=== PATIENT | female | born 1940 | race Caucasian/White ===

== ENCOUNTER 2017-11-12 06:30 | Inpatient (IN) | payer OTHER ==
[2017-11-12] MEDS ORDERED: SODIUM CHLORIDE 1,000 ML IV STA (06:46)
[2017-11-12 06:48] VITALS: BMI 34.3
--- NOTE | 2017-11-12 06:48 | PDOC ---
Attending Attestation - HPI HPI: 11/12/17 07:04 The patient is a 77 year old female with a significant past medical history of HTN, [place], Dieulafoy lesion s/p EGD and banding discharged yesterday, who presents to the ED for evaluation of melena. The patient reports waking up with generalized weakness and associated nausea. Pt reports 1 episode of a large black bowel movement. She reports hematemesis described as dark red and black in color. As per EMS, the patient fell unconscious. The patient denies chest pain, shortness of breath, headache and dizziness. Denies fever, chills, and constipation. Denies dysuria, frequency, urgency and hematuria. Allergies: NKDA Social History: Former smoker. No reported alcohol or drug use. GI: Dr. Davis <Regine Ye - Last Filed: 11/12/17 07:04> - Resident Resident Name: Zion Ontiveros - ED Attending Attestation I have performed the following: The case was reviewed & discussed with the resident - Physicial Exam PE: 11/12/17 19:52 Physical Exam General Appearance: Yes: Appropriately Dressed. mild distress No: Intoxicated HEENT: positive: EOMI, ALMITA, Normal ENT Inspection, Normal Voice, TMs Normal, Pharynx Normal. negative: Pale Conjunctivae, Photophobia, Scleral Icterus (R), Scleral Icterus (L) Neck: positive: Trachea midline, Normal Thyroid, Supple. negative: Tender, Rigid, Carotid bruit, Stridor, Lymphadenopathy (R), Lymphadenopathy (L), Thyromegaly Respiratory/Chest: positive: Lungs Clear, Normal Breath Sounds. negative: Chest Tender, Respiratory Distress, Accessory Muscle Use, Labored Respiration, RES, Crackles, Rales, Rhonchi, Stridor, Wheezing, Dullness Cardiovascular: positive: Regular Rhythm, Regular Rate, S1, S2. negative: Edema , JVD, Murmur, Bradycardia, Tachycardia Vascular Pulses: Dorsalis-Pedis (R): 2+, Doralis-Pedis (L): 2+ Gastrointestinal/Abdominal: positive: Normal Bowel Sounds, Flat, Soft. diffuse tenderness negative: Organomegaly, Pulsatile Mass, Increased Bowel Sounds, Decreased BS, Distended, Guarding, Rebound, Hernia, Hepatomegaly, Spleenomegaly Lymphatic: negative: Adenopathy, Tenderness Musculoskeletal: positive: Normal Inspection. negative: CVA Tenderness, Decreased Range of Motion Extremity: positive: Normal Capillary Refill, Normal Inspection, Normal Range of Motion, Pelvis Stable. negative: Tender, Pedal Edema, Swelling, Erythema Integumentary: positive: Normal Color, Dry, Warm. 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 negative: EOM Palsy, Facial Droop, Sensory Deficit - Medical Decision Making 11/12/17 19:53 Pt admitted for further evaluation and care <Eduard Rodriguez - Last Filed: 11/12/17 19:54> Attestations - Attestations Documentation prepared by Regine Ye, acting as medical communication specialist for Eduard Rodriguez DO. <Regine Ye - Last Filed: 11/12/17 07:04>
--- NOTE | 2017-11-12 06:53 | PDOC ---
History of Present Illness - General Chief Complaint: Rectal Bleed Stated Complaint: VOMITING BLOOD Time Seen by Provider: 11/12/17 06:32 History Source: Patient Exam Limitations: No Limitations - History of Present Illness Initial Comments: 11/12/17 06:48 Patient is a 77F with history of Dieulafoy lesion s/p EGD and banding discharged yesterday here today complaining of melena. Patient states that she woke up this morning while feeling extremely weak and nauseated. Patient states that she then hard a large black bowel movement and vomited a small amount of dark red/black blood. Patient endorses associated shortness of breath. Patient states that she collapsed to the ground from the weakness. EMS reports her stating that she fell unconscious. Patient was admission course for GI bleed was complicated by ICU stay, but hgb levels were stable and the patient was not this weak. Past History - Past Medical History Allergies/Adverse Reactions: Allergies Allergy/AdvReac Type Severity Reaction Status Date / Time No Known Allergies Allergy Verified 11/12/17 06:46 Home Medications: Ambulatory Orders Losartan Potassium 50 mg PO DAILY 11/06/17 Metoprolol Succinate 50 mg PO DAILY 11/06/17 Spironolactone 25 mg PO DAILY 11/06/17 Atorvastatin Ca [Lipitor] 40 mg PO HS #15 tablet 11/10/17 Pantoprazole Sodium [Protonix] 40 mg PO BID #60 tablet. 11/11/17 COPD: No HTN: Yes - Suicide/Smoking/Psychosocial Hx Smoking History: Former smoker Have you smoked in the past 12 months: No Hx Alcohol Use: No Drug/Substance Use Hx: No Substance Use Type: None Review of Systems - Review of Systems Comments:: 11/12/17 06:53 GENERAL/CONSTITUTIONAL: No fever + chills. +weakness. HEAD, EYES, EARS, NOSE AND THROAT: No change in vision. No sore throat. CARDIOVASCULAR: No chest pain. +shortness of breath RESPIRATORY: No cough, wheezing. +hemoptysis. GASTROINTESTINAL: +nausea, vomiting, diarrhea GENITOURINARY: No dysuria, frequency, or change in urination. MUSCULOSKELETAL: No joint or muscle swelling or pain. No neck or back pain. SKIN: No rash NEUROLOGIC: No headache, vertigo, loss of consciousness, or change in strength/ sensation. ENDOCRINE: No increased thirst. No abnormal weight change HEMATOLOGIC/LYMPHATIC: +anemia, +easy bleeding, ALLERGIC/IMMUNOLOGIC: No hives or skin allergy. *Physical Exam - Vital Signs Last Vital Signs Temp Pulse Resp BP Pulse Ox 99.5 F 79 16 87/54 92 L 11/12/17 06:46 11/12/17 06:46 11/12/17 06:46 11/12/17 06:46 11/12/17 06:46 - Physical Exam Comments: 11/12/17 06:54 GENERAL: Awake, alert, and fully oriented, in acute distress, pale, diaphoretic HEAD: No signs of trauma, normocephalic, atraumatic EYES: PERRLA, EOMI, sclera anicteric, conjunctiva clear ENT: Auricles normal inspection, hearing grossly normal, nares patent, oropharynx clear without exudates. Moist mucosa NECK: Normal ROM, supple, no lymphadenopathy, JVD, or masses LUNGS: No distress, speaks full sentences, clear to auscultation bilaterally HEART: Regular rate and rhythm, normal S1 and S2, no murmurs, rubs or gallops, peripheral pulses normal and equal bilaterally. ABDOMEN: Soft, nontender, normoactive bowel sounds. No guarding, no rebound. No masses EXTREMITIES: Normal inspection, Normal range of motion, no edema. No clubbing or cyanosis. NEUROLOGICAL: Cranial nerves II through XII grossly intact. Normal speech, no focal sensorimotor deficits SKIN: Warm, Dry, normal turgor, no rashes or lesions noted. ED Treatment Course - RADIOLOGY Radiology Studies Ordered: Category Date Time Status CXRPORT [CHEST X-RAY PORTABLE*] [RAD] Stat Radiology 11/12/17 06:36 Ordered Medical Decision Making - Critical Care Time Total Critical Care Time (minutes): 45 Critical Care Statement: The care of this patient involved high complexity decision making to prevent further life threatening deterioration of the patient 's condition and/or to evaluate & treat vital organ system(s) failure or risk of failure. - Medical Decision Making 11/12/17 06:56 Patient is a 77F with history of Dieulafoy lesion s/p EGD and banding, [place] s/p stenting 10 years ago here with GI bleed. Vital signs notable for hypotension to 87/54. EMS placed 16g IV, will place additional line. CBC, CMP, PT/INR, PTT, Lactic acid, stool for occult blood ordered for further evaluation. 1L fluids ordered, blood bank notified of need for emergent transfusion, patient had melanotic bowel movement twice during initial evaluation. 11/12/17 07:15 Second line placed. Blood at patient bedside to be given. Patient mentating well and protecting airway. Signed out to Dr Wilson. *DC/Admit/Observation/Transfer Diagnosis at time of Disposition: GI bleed - Discharge Dispostion Condition at time of disposition: Critical - Referrals - Patient Instructions - Post Discharge Activity
--- NOTE | 2017-11-12 07:17 | PDOC ---
*Physical Exam - Vital Signs Last Vital Signs Temp Pulse Resp BP Pulse Ox 99.5 F 79 16 87/54 92 L 11/12/17 06:46 11/12/17 06:46 11/12/17 06:46 11/12/17 06:46 11/12/17 06:46 ED Treatment Course - LABORATORY CBC & Chemistry Diagram: 11/12/17 07:05 *DC/Admit/Observation/Transfer Diagnosis at time of Disposition: GI bleed - Discharge Dispostion Condition at time of disposition: Critical - Referrals - Patient Instructions - Post Discharge Activity
[2017-11-12 07:28] LABS: BASO % 0.4 % (0-2.0); EOS % 3.9 % (0-4.5); HEMATOCRIT 23.8 % (32.4-45.2); HEMOGLOBIN 7.8 GM/dL (10.7-15.3); LYMPH % 20.9 % (8-40); MCH 30.1 pg (25.7-33.7); MCHC 32.7 g/dl (32.0-36.0); MEAN CELL VOLUME 92.1 fl (80-96); MEAN PLT VOLUME 8.9 fl (7.5-11.1); MONO % 4.8 % (3.8-10.2); PLATELET COUNT 224 K/MM3 (134-434); RBC 2.59 M/mm3 (3.60-5.2); RDW 14.4 % (11.6-15.6); WHITE BLOOD COUNT 13.6 K/mm3 (4.0-10.0)
[2017-11-12 07:34] LABS: INR 1.17 (0.82-1.09); PROTHROMBIN TIME (PATIENT) 13.2 SEC (9.7-13.0)
[2017-11-12 07:37] LABS: ACTIVATED PTT 23.9 SECONDS (25.2-36.5)
[2017-11-12] MEDS ORDERED: PANTOPRAZOLE SODIUM 40 MG VIAL IVPUSH ONE (07:43)
[2017-11-12] MEDS ORDERED: PANTOPRAZOLE SODIUM 80 MG in SODIUM CHLORIDE 100 ML IVPB SCH (07:45)
--- NOTE | 2017-11-12 08:00 | PDOC ---
*Physical Exam - Vital Signs Last Vital Signs Temp Pulse Resp BP Pulse Ox 99.5 F 79 16 87/54 92 L 11/12/17 06:46 11/12/17 06:46 11/12/17 06:46 11/12/17 06:46 11/12/17 06:46 - Physical Exam General Appearance: Yes: Nourished. No: Apparent Distress HEENT: positive: EOMI, ALMITA, Normal Voice, Hearing Grossly Normal. negative: Nasal Congestion Neck: positive: Trachea midline, Supple Respiratory/Chest: negative: Chest Tender, Respiratory Distress, Accessory Muscle Use Cardiovascular: positive: Regular Rhythm, Regular Rate. negative: Murmur Vascular Pulses: Femoral (R): 2+, Femoral (L): 2+, Carotid (R): 2+, Carotid (L) : 2+, Dorsalis-Pedis (R): 2+, Doralis-Pedis (L): 2+ Gastrointestinal/Abdominal: positive: Normal Bowel Sounds, Protuberent. 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, Fully Oriented, Alert, Normal Mood/ Affect, Normal Response, Motor Strength 5/5 ED Treatment Course - LABORATORY CBC & Chemistry Diagram: 11/12/17 09:53 11/12/17 07:05 - ADDITIONAL ORDERS Additional order review: Laboratory Results 11/12/17 11/12/17 11/12/17 07:05 07:05 07:05 PT with INR 13.20 H INR 1.17 H PTT (Actin FS) 23.9 L Lactic Acid 8.2 H* Creatine Kinase 73 Troponin I 0.18 H Blood Type Crossmatch 11/12/17 06:52 PT with INR INR PTT (Actin FS) Lactic Acid Creatine Kinase Troponin I Blood Type O POSITIVE Crossmatch See Detail 11/12/17 07:05 RBC 2.59 L MCV 92.1 MCHC 32.7 RDW 14.4 MPV 8.9 Neutrophils % 70.0 Lymphocytes % 20.9 Monocytes % 4.8 Eosinophils % 3.9 Basophils % 0.4 Medical Decision Making - Medical Decision Making I assumed care of this patient from Dr. Ontiveros at 0700 who discussed the relevant HPI and PE findings at the time of arrival as well as interventions undertaken until this time. At the time I assumed this patient, her BP wa 87/59, HR 79, and her Hgb was 7.8. 2u pRBC will be transfused. Her blood pressure then improved 103/80s with a HR of 73. Dr. Davis was contacted who evaluated the patient and states that there was not acute GI intervention indicated at this time and Suggested calling Dr. Martin's group who, when contacted, stated that they are unavailable for emergent surgeries at this time. Dr. Guillen's group, the on- call team, will be contacted. Of note, her LA was 8.2, will continue with NS resuscitation. Repeat CBC, BMP, and LA will be obtained s/p 2u pRBC. Currently Dr. Hoskins also evaluated the patient and agreed with Dr. Davis's recommendation of IR evaluation for acute bleed with likely need for repeat EGD. Dispo: Plan for transfer to [facility] for acute GI bleed with acute blood loss anemia & hypotension 11/13/17 12:48 *DC/Admit/Observation/Transfer Diagnosis at time of Disposition: Dieulafoy lesion (hemorrhagic) of stomach and duodenum GI bleed Qualifiers: GI bleed type/associated pathology: melena Qualified Code(s): K92.1 - Melena - Discharge Dispostion Disposition: TRANSFER ACUTE CARE/OTHER HOSP Condition at time of disposition: Critical Decision to Admit order: No - Referrals - Patient Instructions - Post Discharge Activity - Transfer to Acute Care Facility Receiving Facility: [facility].
[2017-11-12 08:06] LABS: ALBUMIN 2.5 g/dl (3.4-5.0); ANION GAP 16 (8-16); BLOOD UREA NITROGEN 17 mg/dL (7-18); CALCIUM 8.2 mg/dL (8.5-10.1); CHLORIDE 111 mmol/L (98-107); CO2 18 mmol/L (21-32); GLUCOSE,RANDOM 178 mg/dL (74-106); SODIUM 145 mmol/L (136-145)
[2017-11-12 08:09] LABS: ALK PHOS 77 U/L (45-117); BILIRUBIN,TOTAL 0.4 mg/dL (0.2-1.0); CREATININE 1.2 mg/dL (0.55-1.02); SGPT/ALT 22 U/L (12-78); TOT PROT 5.1 g/dl (6.4-8.2)
[2017-11-12 08:11] LABS: POTASSIUM 4.4 mmol/L (3.5-5.1); SGOT/AST 26 U/L (15-37)
--- NOTE | 2017-11-12 08:11 | CON.GI ---
Consult Consult Specialty:: GI Referred by:: Hospitalist Service Reason for Consultation:: Upper GI Bleed - History of Present Illness Chief Complaint: Vomiting Blood History of Present Illness: 77F BIBEMS for evaluation of lightheadedness, melena and vomiting of blood this morning. Triage vitals revealed her to be hypotensive with BP 87/54. She has received a 500cc bolus a is receiving 1 U PRBC. She was admitted this past monday 11/06 for similar complaints. She had a CTA in the ER at that time that failed to reveal an active bleeding source. She underwent a prolonged EGD requiring intubation as there was copious clotted blood in the fundus of the stomach. After removel of the clot, an aberrant vessel was found deep in the fundus. It was treated with epinephrine injection and endoclip placements x 3. The following day she was extubated, had an episode of A. Fib w/ RVR but was not anticoagulated given recent bleeding. She was maintained on protonix therapy, was no recurrent bleeding and was discharged home yesterday. She described some lower abdominal cramping that has since resolved after a bowel movement this morning. 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 11/11/17 Family Disease History - Family Disease History Family Disease History: Other: Father (: 60: NC), Mother (: 78: CVA), Sister (1, healthy), Son (4, healthy), Daughter (4, healthy) Review of Systems - Review of Systems Constitutional: reports: Weakness Cardiovascular: denies: Chest Pain Respiratory: denies: SOB Gastrointestinal: reports: Abdominal Pain (Cramping, resolved), Melena, Vomiting Blood. denies: Constipation Physical Exam-GI Vital Signs: Vital Signs Temperature 99.5 F 11/12/17 06:46 Pulse Rate 79 11/12/17 06:46 Respiratory Rate 16 11/12/17 06:46 Blood Pressure 87/54 11/12/17 06:46 O2 Sat by Pulse Oximetry (%) 92 L 11/12/17 06:46 Constitutional: Yes: Calm, Pallor Eyes: No: Sclera Icterus Cardiovascular: Yes: Regular Rate and Rhythm (beta blocked) Respiratory: Yes: CTA Bilaterally Gastrointestinal Inspection: No: Distention ...Auscultate: Yes: Normoactive Bowel Sounds ...Palpate: No: Tenderness ...Percussion: No: Tympanitic ...Rectal Exam: Yes: Other (dark brown stool guaiac positive) Edema: No (No LE edema) Neurological: Yes: Alert, Oriented Labs: CBC, BMP 11/12/17 07:05 INR, PTT INR 1.17 (0.82-1.09) H 11/12/17 07:05 Problem List - Problems (1) Dieulafoy lesion (hemorrhagic) of stomach and duodenum Assessment/Plan: Suspect rebleeding of the fundic vessel noted on recent upper endoscopy. Given recent endoscopic intervention, I placed a call to Dr. Joey Conway, interventional radiologist to see if this lesion would be amenable to embolization. If an active bleeding source cannot be isolated by IR, then I explained to Amaris Franklin that repeat EGD would need to be considered as well. Also, surgical consultation was requested. For now: NPO IV hydration PPI drip Code(s): K31.82 - DIEULAFOY LESION (HEMORRHAGIC) OF STOMACH AND DUODENUM
[2017-11-12] MEDS ORDERED: PANTOPRAZOLE SODIUM 40 MG VIAL ONE (08:18)
--- NOTE | 2017-11-12 09:06 | CONSULT ---
Consultation: CONSULT REQUEST: We have been asked to medically evaluate this patient for ICU/ critical care HISTORY OF PRESENT ILLNESS: 77 y/o F w/PMH of HTN, [place] (10 years ago, s/p stent placement), dieulafoy lesion , AFib (diagnosed last admission, not on AC due to GIB)presents to the ER via ambulance after vomiting crimson colored blood this morning. Pt was discharged yesterday from [facility] for UGIB (found to have dieulafoy lesion and injected with epi and 3 clips placed). She got up to go to the bathroom this AM and was extremely weak and her legs felt like "jelly", she slid to ground using wall but did not fall, threw up crimson colored vomit and her vision began closing in on her. She did not lose consciousness. She had a dark colored BM at home and again had another dark BM here in ER. She did not throw up since the initial episode. She had some SOB and light-headedness. Both of which are improved currently. She ate thor donuts egg wrap, eggplant cutlets, and had coffee yesterday. She denies CP, palpitations, dysuria, blood in urine, chills, swelling legs. Denies currently nausea, abd pain, SOB, light-headedness, visual changes. Pt states she also had an IV site that was infiltrated on R arm which is improving. She has tenderness in the area but has full sensation and ROM of her R wrist and hand. PMH: HTN, [place] (10 years ago s/p stent placement), Dieulafoy lesion, AFib ( diagnosed last admission, not on AC due to GIB) PSHx: Cardiac stent 10 years ago, 3 c-sections SH: Smoking: smoked 1 pack per 2-3 weeks for 3-4 years in college. Has not smoked since. Alcohol: Social use Drugs: Denies FH: NE, no heme hx noted Allergies: NKDA REVIEW OF SYSTEMS: CONSTITUTIONAL: +subjective fever yesterday, generalized weakness Absent: chills HEENT: +visual changes CARDIOVASCULAR: +light-headedness Absent: chest pain, syncope, palpitations, irregular heart rate, peripheral edema RESPIRATORY: +SOB GASTROINTESTINAL: +abd pain, nausea, vomiting, melena GENITOURINARY: Absent: dysuria,hematuria MUSCULOSKELETAL: +leg weakness, cramps in calves NEUROLOGIC: +dizziness Absent: mental status change PHYSICAL EXAMINATION Vital Signs - 24 hr 11/12/17 06:46 Temperature 99.5 F Pulse Rate 79 Respiratory 16 Rate Blood Pressure 87/54 O2 Sat by Pulse 92 L Oximetry (%) GENERAL: Awake, alert, and fully oriented, in no acute distress. Speaking in full sentences without dyspnea. HEAD: Normal with no signs of trauma. EYES: extraocular movements intact, sclera anicteric EARS, NOSE, THROAT: Ears normal, nares patent, Moist mucous membranes. LUNGS: Breath sounds equal, clear to auscultation bilaterally. No wheezes, and no crackles. No accessory muscle use. HEART: Regular rate and rhythm, normal S1 and S2 ABDOMEN: +hypoactive BS. Soft, nontender, not distended UPPER EXTREMITIES: 2+ radial pulses. RUE with redness proximal to wrist, tender to palpation. Sensation intact on hand. LOWER EXTREMITIES: 2+ pulses, warm, well-perfused. No calf tenderness. 1+ pitting edema NEUROLOGICAL: Cranial nerves II-XII grossly intact. Normal speech. Gait not observed. PSYCHIATRIC: Cooperative. Good eye contact. Appropriate mood and affect. SKIN: Warm, dry Laboratory Results - last 24 hr 11/12/17 11/12/17 11/12/17 06:52 07:05 07:05 WBC 13.6 H RBC 2.59 L Hgb 7.8 L Hct 23.8 L MCV 92.1 MCH 30.1 MCHC 32.7 RDW 14.4 Plt Count 224 D MPV 8.9 Absolute Neuts (auto) 9.5 Neutrophils % 70.0 Lymphocytes % 20.9 Monocytes % 4.8 Eosinophils % 3.9 Basophils % 0.4 Nucleated RBC % 0 PT with INR 13.20 H INR 1.17 H PTT (Actin FS) 23.9 L Sodium Potassium Chloride Carbon Dioxide Anion Gap BUN Creatinine Creat Clearance w eGFR Random Glucose Lactic Acid Calcium Total Bilirubin AST ALT Alkaline Phosphatase Creatine Kinase Troponin I Total Protein Albumin Blood Type O POSITIVE Antibody Screen Negative Crossmatch See Detail 11/12/17 11/12/17 07:05 07:05 WBC RBC Hgb Hct MCV MCH MCHC RDW Plt Count MPV Absolute Neuts (auto) Neutrophils % Lymphocytes % Monocytes % Eosinophils % Basophils % Nucleated RBC % PT with INR INR PTT (Actin FS) Sodium 145 Potassium 4.4 Chloride 111 H Carbon Dioxide 18 L Anion Gap 16 BUN 17 Creatinine 1.2 H Creat Clearance w eGFR 43.80 Random Glucose 178 H Lactic Acid 8.2 H* Calcium 8.2 L Total Bilirubin 0.4 AST 26 ALT 22 Alkaline Phosphatase 77 D Creatine Kinase 73 Troponin I 0.18 H Total Protein 5.1 L Albumin 2.5 L Blood Type Antibody Screen Crossmatch Active Medications Generic Name Dose Route Start Last Admin Trade Name Freq PRN Reason Stop Dose Admin Pantoprazole Sodium 80 mg/ 100 mls @ 10 mls/hr 11/12/17 07:45 Sodium Chloride IVPB Q10H OLEG 8 MG/HR ASSESSMENT/PLAN: 77 y/o F w/PMH of HTN, [place] (10 years ago, s/p stent placement) presents to the ER via ambulance after vomiting crimson colored blood this morning. Admitted to ICU for UGIB. -Acute normocytic symptomatic anemia secondary to UGIB -likely secondary to previously seen dieulafoy lesion on last admission -2 large bore IV access -Monitor CBC -2 units PRBC ordered, 1 unit finished so far -Hgb goal >8 (pt with cardiac history) -Protonix drip -GI consult -Surgery consult -IR consult -Lactic acidosis -Likely secondary to UGIB and anemia -Repeat in 2 hours -Elevated trops -Likely demand from anemia/UGIB -Trend -Hx of Afib -Not on A/C due to recent bleed. Found to be in Afib on last admission -Currently RRR -DVT ppx -SCDs. No AC due to bleeding -FEN -Receiving blood products -Monitor electrolytes -NPO Dispo: We will continue to follow the patient. Thank you for this consultative opportunity. Visit type - Emergency Visit Emergency Visit: Yes ED Registration Date: 11/12/17 Care time: The patient presented to the Emergency Department on the above date and was hospitalized for further evaluation of their emergent condition. - New Patient This patient is new to me today: Yes Date on this admission: 11/12/17 - Critical Care Critical Care patient: Yes Total Critical Care Time (in minutes): 45 Critical Care Statement: The care of this patient involved high complexity decision making to prevent further life threatening deterioration of the patient 's condition and/or to evaluate & treat vital organ system(s) failure or risk of failure.
[2017-11-12] MEDS ORDERED: SODIUM CHLORIDE 0.9% 500 ML INFUS.BAG IV ONE (09:36)
[2017-11-12 10:02] LABS: ANISOCYTOSIS 1+; MACROCYTOSIS 1+; OVALOCYTE 1+; PLATELET ESTIMATE NORMAL
[2017-11-12 10:05] LABS: HEMATOCRIT 26.4 % (32.4-45.2); HEMOGLOBIN 8.9 GM/dL (10.7-15.3); MCH 30.7 pg (25.7-33.7); MCHC 33.7 g/dl (32.0-36.0); MEAN PLT VOLUME 8.5 fl (7.5-11.1); PLATELET COUNT 140 K/MM3 (134-434); RDW 15.4 % (11.6-15.6); WHITE BLOOD COUNT 13.3 K/mm3 (4.0-10.0)
--- NOTE | 2017-11-12 10:05 | PN ---
Progress Note (short form) - Note Progress Note: Spoke with Dr. Conway. Given location of previously noted bleeding source, selective embolization likely difficult. Transfer was arranged to [facility] by Dr. carreno Problem List - Problems (1) Dieulafoy lesion (hemorrhagic) of stomach and duodenum Code(s): K31.82 - DIEULAFOY LESION (HEMORRHAGIC) OF STOMACH AND DUODENUM
[2017-11-12] MEDS ORDERED: METOCLOPRAMIDE HCL INJECTION 10 MG/2 ML VIAL IVPUSH ONE (12:15)
--- NOTE | 2017-11-12 12:25 | HOSP ---
Subjective - Review of Symptoms Events since last encounter: Vital Signs Temperature 99.5 F 11/12/17 06:46 Pulse Rate 79 11/12/17 06:46 Respiratory Rate 16 11/12/17 06:46 Blood Pressure 87/54 11/12/17 06:46 O2 Sat by Pulse Oximetry (%) 92 L 11/12/17 06:46 Current Medications Generic Name Dose Route Start Last Admin Trade Name Freq PRN Reason Stop Dose Admin Pantoprazole Sodium 80 mg/ 100 mls @ 10 mls/hr 11/12/17 07:45 11/12/17 07:45 Sodium Chloride IVPB 10 mls/hr Q10H OLEG Administration 8 MG/HR Home Medications Medication Instructions Recorded Losartan Potassium 50 mg PO DAILY 11/06/17 Metoprolol Succinate 50 mg PO DAILY 11/06/17 Spironolactone 25 mg PO DAILY 11/06/17 Atorvastatin Ca [Lipitor] 40 mg PO HS #15 tablet 11/10/17 Pantoprazole Sodium [Protonix] 40 mg PO BID #60 tablet. 11/11/17 Patient is being transferred to [facility], discussed with Dr. Conway. Given location of previously noted bleeding source, selective embolization likely would be difficult. Patient is accepted to [facility] and transfer is arranged to [facility] by [facility]. Discussed with the ED. Attending, . Physical Examination Vital Signs: Vital Signs Temperature 99.5 F 11/12/17 06:46 Pulse Rate 79 11/12/17 06:46 Respiratory Rate 16 11/12/17 06:46 Blood Pressure 87/54 11/12/17 06:46 O2 Sat by Pulse Oximetry (%) 92 L 11/12/17 06:46 Labs: CBC, BMP 11/12/17 09:53 11/12/17 07:05
--- NOTE | 2017-11-12 14:21 | EKG ---
Test Reason : Blood Pressure : / mmHG Vent. Rate : 079 BPM Atrial Rate : 079 BPM P-R Int : 154 ms QRS Dur : 104 ms QT Int : 406 ms P-R-T Axes : 036 -42 045 degrees QTc Int : 465 ms NORMAL SINUS RHYTHM LEFT AXIS DEVIATION MINIMAL VOLTAGE CRITERIA FOR LVH, MAY BE NORMAL VARIANT NONSPECIFIC ST AND T WAVE ABNORMALITY ABNORMAL ECG WHEN COMPARED WITH ECG OF 07-NOV-2017 17:38, SINUS RHYTHM HAS REPLACED ATRIAL FIBRILLATION QRS DURATION HAS DECREASED ST NO LONGER DEPRESSED IN LATERAL LEADS NONSPECIFIC T WAVE ABNORMALITY HAS REPLACED INVERTED T WAVES IN LATERAL LEADS Confirmed by MICHAEL IVERSON MD ([id number]) on 11/12/2017 2:21:13 PM Referred By: Confirmed By:MICHAEL IVERSON MD
[2017-11-12 15:08] VITALS: BP 78/60; PULSE 78; TEMP 98.7
== END 2017-11-12 11:30 | disposition short-term general hospital (02) | DRG 378 ==
LOC: JER 06:30 → JERBED 09:23
PROVIDERS: ADMIT Internal Medicine; ATTEND Internal Medicine
PROC: 30233N1 Transfusion of Nonautologous Red Blood Cells into Peripheral Vein, Percutaneous Approach (ICD-10-PCS; principal; 2017-11-12)
DX: K31.82 Dieulafoy lesion (hemorrhagic) of stomach and duodenum (principal); K92.2 Gastrointestinal hemorrhage, unspecified; E87.2 Acidosis; D62 Acute posthemorrhagic anemia; I10 Essential (primary) hypertension
CPT/HCPCS: 36415; 36430; 36511; 71045-TC-FY; 80053; 82550; 83605; 84484; 85025; 85027; 85610; 85730; 86850; 86900; 86901; 86922; 93005; 93010; 99281-25; J7030; P9038; P9058

== ENCOUNTER 2021-04-17 13:39 | Emergency (ER) | payer OTHER ==
[2021-04-17 14:24] VITALS: BMI 35.4
[2021-04-17] MEDS ORDERED: CASIRIVIMAB/IMDEVIMAB 10 ML in SODIUM CHLORIDE 100 ML IVPB ONE ×2 (14:33→17:22)
[2021-04-17] MEDS ORDERED: SODIUM CHLORIDE 1,000 ML IV STA (14:34)
[2021-04-17] MEDS ORDERED: ACETAMINOPHEN 1000 MG/100 ML VIAL IVPB ONE (14:34)
[2021-04-17] MEDS ORDERED: ONDANSETRON 4 MG/2 ML VIAL IVPUSH ONE (14:34)
[2021-04-17] MEDS ORDERED: ONDANSETRON 4 MG/2 ML VIAL ONE (14:45)
[2021-04-17] MEDS ORDERED: ACETAMINOPHEN INJECTION 100 ML IVPB ONE (14:45)
[2021-04-17] MEDS ORDERED: BAMLANIVIMAB 700 MG, ETESEVIMAB 1,400 MG in SODIUM CHLORIDE 100 ML IVPB ONE (15:56)
[2021-04-17 17:56] LABS: BASO % 0.2 % (0-2.0); HEMATOCRIT 39.5 % (32.4-45.2); HEMOGLOBIN 13.3 GM/dL (10.7-15.3); LYMPH % 8.5 % (8-40); MCHC 33.8 g/dl (32.0-36.0); MEAN CELL VOLUME 85.7 fl (80-96); MEAN PLT VOLUME 9.3 fl (7.5-11.1); MONO % 8.8 % (3.8-10.2); NEUT % 82.5 % (42.8-82.8); PLATELET COUNT 133 10^3/uL (134-434); RBC 4.61 M/mm3 (3.60-5.2); RDW 16.3 % (11.6-15.6); WHITE BLOOD COUNT 8.3 K/mm3 (4.0-10.0)
[2021-04-17 18:02] LABS: INR 2.04 (0.83-1.09); PROTHROMBIN TIME (PATIENT) 24.1 SEC (9.7-13.0)
[2021-04-17 18:07] LABS: ALBUMIN 2.7 g/dl (3.4-5.0); CALCIUM 8.4 mg/dL (8.5-10.1)
[2021-04-17 18:08] LABS: BLOOD UREA NITROGEN 30.6 mg/dL (7-18)
[2021-04-17 18:10] LABS: CREATININE 1.1 mg/dL (0.55-1.3)
[2021-04-17 18:12] LABS: BILIRUBIN,TOTAL 2.5 mg/dL (0.2-1); TOT PROT 6.1 g/dl (6.4-8.2)
[2021-04-17 18:42] VITALS: BP 104/55; PULSE 85; TEMP 97.5
== END 2021-04-17 22:39 | disposition left against medical advice (07) ==
LOC: JCOVINFU 13:39
PROC: 3E0333Z Introduction of Anti-inflammatory into Peripheral Vein, Percutaneous Approach (ICD-10-PCS; principal; 2021-04-17)
PROC: 3E03329 Introduction of Other Anti-infective into Peripheral Vein, Percutaneous Approach (ICD-10-PCS; 2021-04-17)
PROC: 3E033GC Introduction of Other Therapeutic Substance into Peripheral Vein, Percutaneous Approach (ICD-10-PCS; 2021-04-17)
PROC: 3E0337Z Introduction of Electrolytic and Water Balance Substance into Peripheral Vein, Percutaneous Approach (ICD-10-PCS; 2021-04-17)
DX: U07.1 COVID-19 (principal); K81.9 Cholecystitis, unspecified
CPT/HCPCS: 36415; 76705-TC; 80053; 83690; 85025; 85610; 99284-25; J0131; Q0240

== ENCOUNTER 2021-06-07 04:16 | Day surgery (SDC) | payer OTHER ==
[2021-06-05 11:54] VITALS: BMI 35.2
[2021-06-07] MEDS ORDERED: LIDOCAINE 1% P/F 10 MG/ML VIAL INF ONE (09:18)
[2021-06-07] MEDS ORDERED: IOHEXOL 180 MG/1 ML ML IJ ONE (09:18)
[2021-06-07] MEDS ORDERED: BUPIVACAINE HCL/PF 0.75% 10 ML VIAL NR ONE (09:18)
[2021-06-07 09:45] VITALS: TEMP 96.9
[2021-06-07 10:24] VITALS: BP 118/73; PULSE 79
== END 2021-06-07 10:10 | disposition home or self-care (01) ==
LOC: JASU-SURG 04:16
PROVIDERS: ATTEND Pain Medicine Pain Medicine
PROC: BR16YZZ Fluoroscopy of Lumbar Facet Joint(s) using Other Contrast (ICD-10-PCS; 2021-06-07)
PROC: 3E0T3BZ Introduction of Anesthetic Agent into Peripheral Nerves and Plexi, Percutaneous Approach (ICD-10-PCS; principal; 2021-06-07 09:00)
DX: M47.816 Spondylosis without myelopathy or radiculopathy, lumbar region (principal); I10 Essential (primary) hypertension; I48.91 Unspecified atrial fibrillation
CPT/HCPCS: 76000-TC-FY

== ENCOUNTER 2022-02-06 13:29 | Inpatient (IN) | payer OTHER ==
[2022-02-06 13:40] VITALS: BMI 32.1
[2022-02-06] MEDS ORDERED: ACETAMINOPHEN 1000 MG/100 ML BAG IVPB ONE (14:48)
[2022-02-06 14:57] LABS: BASO % 0.4 % (0-2.0); EOS % 1.5 % (0-4.5); HEMATOCRIT 40.5 % (32.4-45.2); HEMOGLOBIN 13.5 GM/dL (10.7-15.3); MCH 30.2 pg (25.7-33.7); MCHC 33.4 g/dl (32.0-36.0); MEAN CELL VOLUME 90.5 fl (80-96); MEAN PLT VOLUME 8.9 fl (7.5-11.1); MONO % 6.6 % (3.8-10.2); NEUT % 70.5 % (42.8-82.8); PLATELET COUNT 174 10^3/uL (134-434); RBC 4.48 M/mm3 (3.60-5.2); RDW 14.8 % (11.6-15.6); WHITE BLOOD COUNT 8.2 K/mm3 (4.0-10.0)
[2022-02-06 15:04] LABS: INR 1.5 (0.83-1.09); PROTHROMBIN TIME (PATIENT) 17.3 SEC (9.7-13.0)
[2022-02-06 15:07] LABS: ACTIVATED PTT 37.8 SECONDS (25.2-36.5)
[2022-02-06 15:19] LABS: CALCIUM 9.2 mg/dL (8.5-10.1)
[2022-02-06 15:20] LABS: ALBUMIN 3.1 g/dl (3.4-5.0)
[2022-02-06 15:21] LABS: BLOOD UREA NITROGEN 19.3 mg/dL (7-18)
[2022-02-06 15:23] LABS: CREATININE 0.8 mg/dL (0.55-1.3)
[2022-02-06 15:24] LABS: TOT PROT 6.4 g/dl (6.4-8.2)
[2022-02-06 15:26] LABS: BILIRUBIN,TOTAL 0.8 mg/dL (0.2-1)
[2022-02-06] MEDS ORDERED: ACETAMINOPHEN INJECTION 100 ML IVPB ONE (15:47)
[2022-02-06 16:38] LABS: PH,URINE 5.5 (5.0-8.0); URINE APPEARANCE CLEAR; URINE BILIRUBIN NEGATIVE (NEGATIVE); URINE COLOR YELLOW; URINE GLUCOSE (UA) 3+ (NEGATIVE); URINE KETONE NEGATIVE (NEGATIVE); URINE LEUK ESTERASE NEGATIVE (NEGATIVE); URINE NITRITE NEGATIVE (NEGATIVE); URINE PROTEIN NEGATIVE (NEGATIVE); URINE UROBILINOGEN 0.2 mg/dL (0.2-1.0)
[2022-02-06] MEDS: ASPIRIN COATED 81 MG TABLET.EC PO SCH (22:19)
[2022-02-06] MEDS: SACUBITRIL/VALSARTAN 49 MG-51 MG TABLET PO SCH (22:19)
[2022-02-06] MEDS: APIXABAN 5 MG TABLET PO SCH (22:19)
[2022-02-06] MEDS: ATORVASTATIN CA 80 MG TABLET (FP) PO SCH (22:19)
[2022-02-07 08:28] LABS: BASO % 0.3 % (0-2.0); EOS % 3.8 % (0-4.5); HEMATOCRIT 38.8 % (32.4-45.2); HEMOGLOBIN 12.8 GM/dL (10.7-15.3); MCH 29.7 pg (25.7-33.7); MEAN CELL VOLUME 89.9 fl (80-96); MONO % 8.1 % (3.8-10.2); NEUT % 59.8 % (42.8-82.8); PLATELET COUNT 163 10^3/uL (134-434); RBC 4.32 M/mm3 (3.60-5.2); RDW 14.8 % (11.6-15.6); WHITE BLOOD COUNT 6.9 K/mm3 (4.0-10.0)
[2022-02-07 08:54] LABS: CALCIUM 8.5 mg/dL (8.5-10.1)
[2022-02-07 08:56] LABS: ALBUMIN 2.8 g/dl (3.4-5.0); BLOOD UREA NITROGEN 21.2 mg/dL (7-18)
[2022-02-07 08:58] LABS: CREATININE 0.8 mg/dL (0.55-1.3)
[2022-02-07 09:00] LABS: BILIRUBIN,TOTAL 0.6 mg/dL (0.2-1); TOT PROT 5.6 g/dl (6.4-8.2)
[2022-02-07] MEDS: APIXABAN 5 MG TABLET PO SCH ×2 (09:28→21:21)
[2022-02-07] MEDS: SACUBITRIL/VALSARTAN 49 MG-51 MG TABLET PO SCH ×2 (09:28→22:46)
[2022-02-07] MEDS: CLOPIDOGREL BISULFATE 75 MG TABLET (FP) PO SCH ×2 (09:28→09:33)
[2022-02-07] MEDS ORDERED: PATIENT'S OWN MEDICATION (NON-FORMULARY) (Dapagliflozin Propanediol 10 MG Tablet) PO SCH (10:00)
[2022-02-07] MEDS: ATORVASTATIN CA 80 MG TABLET (FP) PO SCH (21:21)
[2022-02-07] MEDS: ASPIRIN COATED 81 MG TABLET.EC PO SCH (21:23)
[2022-02-08] MEDS: APIXABAN 5 MG TABLET PO SCH (09:16)
[2022-02-08] MEDS: SACUBITRIL/VALSARTAN 49 MG-51 MG TABLET PO SCH (09:17)
[2022-02-08] MEDS ORDERED: metoPROLOL SUCCINATE 25 MG TAB.SR.24H (FP) PO ONE (10:30)
[2022-02-08 10:57] VITALS: RESP 18
[2022-02-08 15:42] VITALS: BP 120/64; PULSE 76; TEMP 98.4
[2022-02-09] MEDS ORDERED: METOPROLOL SUCCINATE 50 MG, METOPROLOL SUCCINATE 25 MG PO SCH (10:00)
== END 2022-02-08 16:39 | disposition home or self-care (01) | DRG 103 ==
LOC: JER 13:29 → JERBED 16:59 → OBSVTOIN 17:05 → J4S 20:21
PROVIDERS: ADMIT Family Medicine; ATTEND Family Medicine
DX: G43.909 Migraine, unspecified, not intractable, without status migrainosus (principal); I50.22 Chronic systolic (congestive) heart failure; I11.0 Hypertensive heart disease with heart failure; I25.10 Atherosclerotic heart disease of native coronary artery without angina pectoris; E78.5 Hyperlipidemia, unspecified; I48.0 Paroxysmal atrial fibrillation; E78.00 Pure hypercholesterolemia, unspecified; R47.81 Slurred speech; F41.9 Anxiety disorder, unspecified; R47.9 Unspecified speech disturbances; Z95.5 Presence of coronary angioplasty implant and graft
CPT/HCPCS: 0241U-QW; 36415; 70450-TC; 80053; 80061; 81003; 82550; 83036; 84443; 84484; 85025; 85610; 85730; 86850; 86900; 86901; 93005; 93010; 93880-TC; 99285-25; G0378

== ENCOUNTER 2023-06-30 04:25 | Day surgery (SDC) | payer OTHER ==
[2023-06-25 09:00] VITALS: BMI 34.3
[2023-06-30] MEDS ORDERED: LIDOCAINE HCL/PF 1% SDV 5ML VIAL ONE (07:43)
[2023-06-30] MEDS ORDERED: BUPIVACAINE HCL/PF 0.75% 10 ML VIAL ONE (07:43)
[2023-06-30 09:49] VITALS: TEMP 97.8
[2023-06-30] MEDS ORDERED: ACETAMINOPHEN 500 MG TABLET (FP) PO PRN (09:49)
[2023-06-30] MEDS: LIDOCAINE HCL 1% PRESERVATIVE FREE - 30ML VIAL IJ ONE (12:08)
[2023-06-30] MEDS: BUPIVACAINE HCL/PF 0.75% 10 ML VIAL NR ONE ×2 (12:13)
[2023-06-30 12:46] VITALS: BP 139/76; PULSE 61; RESP 16
== END 2023-06-30 13:25 | disposition home or self-care (01) ==
LOC: JASU-SURG 04:25
PROVIDERS: ATTEND Pain Medicine Pain Medicine
PROC: 3E0T33Z Introduction of Anti-inflammatory into Peripheral Nerves and Plexi, Percutaneous Approach (ICD-10-PCS; 2023-06-30)
PROC: 3E0T3BZ Introduction of Anesthetic Agent into Peripheral Nerves and Plexi, Percutaneous Approach (ICD-10-PCS; principal; 2023-06-30 11:00)
DX: M47.816 Spondylosis without myelopathy or radiculopathy, lumbar region (principal)
CPT/HCPCS: 76000-TC-FY

== ENCOUNTER 2023-07-31 04:22 | Day surgery (SDC) | payer OTHER ==
[2023-07-27 18:06] VITALS: BMI 34.3
[2023-07-31] MEDS ORDERED: ACETAMINOPHEN 500 MG TABLET (FP) PO PRN (10:30)
[2023-07-31 10:56] VITALS: RESP 18
[2023-07-31] MEDS: DEXAMETHASONE SOD PHOSPHATE 10 MG/1 ML VIAL IVPUSH ONE (11:38)
[2023-07-31] MEDS: BUPIVACAINE HCL/PF 0.75% 10 ML VIAL NR ONE (11:38)
[2023-07-31] MEDS: LIDOCAINE HCL/PF 2% SDV 5ML VIAL INF ONE (11:38)
[2023-07-31] MEDS: LIDOCAINE HCL 1% PRESERVATIVE FREE - 30ML VIAL IJ ONE (11:38)
[2023-07-31 12:32] VITALS: PULSE 66
[2023-07-31 13:15] VITALS: BP 144/77; TEMP 97.2
== END 2023-07-31 13:38 | disposition home or self-care (01) ==
LOC: JASU-SURG 04:22
PROVIDERS: ATTEND Pain Medicine Pain Medicine
PROC: 015B3ZZ Destruction of Lumbar Nerve, Percutaneous Approach (ICD-10-PCS; principal; 2023-07-31 11:15)
DX: M47.816 Spondylosis without myelopathy or radiculopathy, lumbar region (principal)
CPT/HCPCS: 76000-TC-FY; J1100

== ENCOUNTER 2023-08-21 04:18 | Day surgery (SDC) | payer OTHER ==
[2023-08-17 12:03] VITALS: BMI 34.3
[2023-08-21] MEDS: BUPIVACAINE HCL/PF 0.5% (5MG/ML) 10 ML VIAL IJ ONE
[2023-08-21] MEDS ORDERED: LIDOCAINE HCL/PF 1% SDV 5ML VIAL ONE ×2 (07:12→07:13)
[2023-08-21] MEDS ORDERED: BUPIVACAINE HCL/PF 0.75% 10 ML VIAL ONE (07:12)
[2023-08-21] MEDS ORDERED: DEXAMETHASONE SOD PHOSPHATE 10 MG/1 ML VIAL ONE (07:12)
[2023-08-21] MEDS ORDERED: LIDOCAINE HCL/PF 2% SDV 5ML VIAL ONE (07:12)
[2023-08-21] MEDS ORDERED: ACETAMINOPHEN 500 MG TABLET (FP) PO PRN (09:45)
[2023-08-21 11:06] VITALS: RESP 18
[2023-08-21] MEDS: LIDOCAINE 1% P/F 10 MG/ML VIAL INF ONE ×2 (11:38)
[2023-08-21] MEDS: LIDOCAINE HCL/PF 2% SDV 5ML VIAL INF ONE ×3 (11:38)
[2023-08-21] MEDS: DEXAMETHASONE SOD PHOSPHATE 10 MG/1 ML VIAL IVPUSH ONE ×2 (11:38)
[2023-08-21] MEDS: BUPIVACAINE HCL/PF 0.75% 10 ML VIAL NR ONE ×2 (11:38)
[2023-08-21] MEDS: BUPIVACAINE 0.75% IN DEXTROSE/PF 2ML AMPULE NR ONE ×2 (11:38)
[2023-08-21 13:45] VITALS: BP 138/70; PULSE 60; TEMP 98.2
== END 2023-08-21 13:40 | disposition home or self-care (01) ==
LOC: JASU-SURG 04:18
PROVIDERS: ATTEND Pain Medicine Pain Medicine
PROC: 015B3ZZ Destruction of Lumbar Nerve, Percutaneous Approach (ICD-10-PCS; principal; 2023-08-21 13:00)
DX: M47.816 Spondylosis without myelopathy or radiculopathy, lumbar region (principal)
CPT/HCPCS: 76000-TC-FY; J1100

== ENCOUNTER 2023-09-15 03:59 | Day surgery (SDC) | payer OTHER ==
[2023-09-10 12:13] VITALS: BMI 34.3
[2023-09-15] MEDS ORDERED: LIDOCAINE HCL/PF 1% SDV 5ML VIAL ONE (07:24)
[2023-09-15] MEDS ORDERED: BUPIVACAINE HCL/PF 0.75% 10 ML VIAL ONE (07:24)
[2023-09-15] MEDS ORDERED: LIDOCAINE HCL/PF 2% SDV 5ML VIAL ONE (07:24)
[2023-09-15] MEDS ORDERED: DEXAMETHASONE SOD PHOSPHATE 10 MG/1 ML VIAL ONE (07:25)
[2023-09-15] MEDS: TRIAMCINOLONE ACETONIDE 40 MG/ML 10 ML VIAL IJ ONE ×2 (09:49→09:53)
[2023-09-15] MEDS: LIDOCAINE HCL 1%, 10 MG/ML (20ML VIAL) INF ONE ×2 (09:49→09:51)
[2023-09-15] MEDS: BUPIVACAINE HCL/PF 0.5% (5MG/ML) 10 ML VIAL IJ ONE ×2 (09:50→09:53)
[2023-09-15] MEDS: IOHEXOL 180 MG/1 ML ML IJ ONE (09:51)
[2023-09-15 10:13] VITALS: TEMP 97
[2023-09-15 10:55] VITALS: BP 160/80; PULSE 68; RESP 18
[2023-09-15] MEDS ORDERED: ACETAMINOPHEN 500 MG TABLET (FP) PO PRN (14:12)
== END 2023-09-15 11:06 | disposition home or self-care (01) ==
LOC: JASU-SURG 03:59
PROVIDERS: ATTEND Pain Medicine Pain Medicine
PROC: 3E0U3BZ Introduction of Anesthetic Agent into Joints, Percutaneous Approach (ICD-10-PCS; 2023-09-15)
PROC: 3E0U33Z Introduction of Anti-inflammatory into Joints, Percutaneous Approach (ICD-10-PCS; principal; 2023-09-15 09:30)
DX: M53.3 Sacrococcygeal disorders, not elsewhere classified (principal)
CPT/HCPCS: 76000-TC-FY; J1100

== ENCOUNTER 2023-11-20 05:03 | Day surgery (SDC) | payer OTHER ==
[2023-11-18 16:01] VITALS: BMI 34.3
[2023-11-20] MEDS ORDERED: TRIAMCINOLONE ACET 40MG/1ML VIAL ONE (07:38)
[2023-11-20] MEDS ORDERED: BUPIVACAINE HCL/PF 0.5% (5MG/ML) 10 ML VIAL ONE (07:38)
[2023-11-20] MEDS ORDERED: LIDOCAINE HCL/PF 1% SDV 5ML VIAL ONE (07:39)
[2023-11-20] MEDS ORDERED: ACETAMINOPHEN 500 MG TABLET (FP) PO PRN (14:37)
[2023-11-20] MEDS: TRIAMCINOLONE ACETONIDE 40 MG/ML 10 ML VIAL IJ ONE (14:38)
[2023-11-20] MEDS: BUPIVACAINE HCL/PF 0.5% (5 MG/ML) 30 ML VIAL IJ ONE (14:38)
[2023-11-20] MEDS: IOHEXOL 180 MG/1 ML ML IJ ONE (14:38)
[2023-11-20] MEDS: LIDOCAINE HCL 1% PRESERVATIVE FREE - 30ML VIAL IJ ONE (14:38)
[2023-11-20 17:07] VITALS: RESP 18; TEMP 97.8
[2023-11-20 17:08] VITALS: BP 148/72; PULSE 64
== END 2023-11-20 15:53 | disposition home or self-care (01) ==
LOC: JASU-SURG 05:03
PROVIDERS: ATTEND Pain Medicine Pain Medicine
PROC: 3E0U3BZ Introduction of Anesthetic Agent into Joints, Percutaneous Approach (ICD-10-PCS; 2023-11-20)
PROC: 3E0U33Z Introduction of Anti-inflammatory into Joints, Percutaneous Approach (ICD-10-PCS; principal; 2023-11-20 14:45)
DX: M53.3 Sacrococcygeal disorders, not elsewhere classified (principal)
CPT/HCPCS: 76000-TC-FY

== ENCOUNTER 2024-04-22 04:30 | Day surgery (SDC) | payer OTHER ==
[2024-04-19 09:16] VITALS: BMI 34.3
[2024-04-22] MEDS ORDERED: LIDOCAINE HCL/PF 1% SDV 5ML VIAL ONE (07:40)
[2024-04-22] MEDS ORDERED: DEXAMETHASONE SOD PHOSPHATE 10 MG/1 ML VIAL ONE (07:40)
[2024-04-22] MEDS ORDERED: ACETAMINOPHEN 500 MG TABLET (FP) PO PRN (08:40)
[2024-04-22] MEDS: LIDOCAINE HCL 1% PRESERVATIVE FREE - 30ML VIAL IJ ONE ×2 (12:30)
[2024-04-22] MEDS: IOHEXOL 180 MG/1 ML ML IJ ONE ×2 (12:31)
[2024-04-22] MEDS: DEXAMETHASONE SOD PHOSPHATE 10 MG/1 ML VIAL IVPUSH ONE ×2 (12:33)
[2024-04-22 13:05] VITALS: BP 129/69; PULSE 63; RESP 20; TEMP 97.1
== END 2024-04-22 13:49 | disposition home or self-care (01) ==
LOC: JASU-SURG 04:30
PROVIDERS: ATTEND Pain Medicine Pain Medicine
PROC: 3E0R3BZ Introduction of Anesthetic Agent into Spinal Canal, Percutaneous Approach (ICD-10-PCS; 2024-04-22)
PROC: 3E0R33Z Introduction of Anti-inflammatory into Spinal Canal, Percutaneous Approach (ICD-10-PCS; principal; 2024-04-22 12:30)
DX: M54.16 Radiculopathy, lumbar region (principal); M48.061 Spinal stenosis, lumbar region without neurogenic claudication
CPT/HCPCS: 76000-TC-FY; J1100

== ENCOUNTER 2024-08-26 06:08 | Day surgery (SDC) | payer OTHER ==
[2024-08-24 15:37] VITALS: BMI 37.8
[2024-08-26] MEDS ORDERED: ACETAMINOPHEN 500 MG TABLET (FP) ONE (13:02)
[2024-08-26 13:09] VITALS: RESP 20
[2024-08-26] MEDS: ACETAMINOPHEN 500 MG TABLET (FP) PO PRN (13:30)
[2024-08-26] MEDS: CEFAZOLIN 2 GM/D5W 2 GM/50 ML ML IVPB ONE (13:35)
[2024-08-26] MEDS: LIDOCAINE HCL 1% PRESERVATIVE FREE - 30ML VIAL IJ ONE (14:10)
[2024-08-26] MEDS: BUPIVACAINE HCL/PF 0.75% 10 ML VIAL NR ONE (14:10)
[2024-08-26 17:58] VITALS: BP 125/78; PULSE 76; TEMP 97.3
== END 2024-08-26 16:10 | disposition home or self-care (01) ==
LOC: JASU-SURG 06:08
PROVIDERS: ATTEND Pain Medicine Pain Medicine
PROC: 01HY0MZ Insertion of Neurostimulator Lead into Peripheral Nerve, Open Approach (ICD-10-PCS; principal; 2024-08-26 14:15)
DX: G57.92 Unspecified mononeuropathy of left lower limb (principal)
CPT/HCPCS: 64575; C1778; 76000-TC-FY